=== PATIENT | female | born 1945 | race Caucasian/White ===

== ENCOUNTER 2021-04-12 09:07 | Inpatient (IN) | payer MEDICARE ==
[~2021-04-12] VITALS: Ht 170.2 cm; Wt 106.6 kg
[2021-04-12] MEDS ORDERED: ONDANSETRON 4 MG TAB.RAPDIS SL ONE (11:00)
[2021-04-12] MEDS ORDERED: ONDANSETRON 4 MG TAB.RAPDIS ONE (11:06)
[2021-04-12 11:31] LABS: BASOPHILS % (AUTO) 0.6 % (0.0-2.0); EOSINOPHILS % (AUTO) 0.3 % (0.0-6.0); HEMATOCRIT 33 % (33-45); HEMOGLOBIN 10.4 g/dL (11.5-14.8); LYMPHOCYTES # (AUTO) 0.5 K/uL (0.8-4.8); LYMPHOCYTES % (AUTO) 15.3 % (20.0-44.0); MEAN CORPUSCULAR HGB CONC 32 g/dl (31.0-36.0); MEAN CORPUSCULAR VOLUME 85 fL (82-100); MONOCYTES # (AUTO) 0.2 K/uL (0.1-1.30); MONOCYTES % (AUTO) 8.2 % (2.0-12.0); NEUTROPHILS # (AUTO) 2.3 K/uL (1.8-8.9); NEUTROPHILS % (AUTO) 75.6 % (43.0-81.0); PLATELET COUNT (AUTO) 154 K/uL (150-450); RED BLOOD CELL COUNT(AUTO) 3.83 MIL/uL (4.0-5.2)
[2021-04-12 11:48] LABS: CREATININE 0.8 mg/dL (0.6-1.3); POTASSIUM 3.8 mmol/L (3.5-5.1)
[2021-04-12] MEDS: NYSTATIN CREAM 15 GM TUBE TP SCH ×2 (12:00→17:14)
[2021-04-12] MEDS ORDERED: IOHEXOL-300 100 ML VIAL IV ONE (12:35)
[2021-04-12] MEDS ORDERED: IV NS 0.9% 500 ML BAG IV ONE ×2 (13:00→14:00)
[2021-04-12] MEDS ORDERED: CEFTRIAXONE 1GM BAG (ER ONLY) 50 ML IV ONE ×2 (13:00→13:32)
[2021-04-12] MEDS ORDERED: AZITHROMYCIN 500 MG in IV D5W 250 ML IV ONE (13:00)
[2021-04-12 13:08] LABS: MAGNESIUM 1.9 mg/dL (1.8-2.4)
[2021-04-12 13:51] LABS: C-REACTIVE PROTEIN 8.7 mg/dL (0.0-0.9)
[2021-04-12] MEDS ORDERED: CLON0.3T PO (14:09)
[2021-04-12] MEDS ORDERED: NEBI10TA2 PO (14:09)
[2021-04-12] MEDS ORDERED: VALS160T2 PO (14:09)
[2021-04-12] MEDS ORDERED: ONDANSETRON HCL/PF 4 MG/2 ML VIAL IVP PRN (14:30)
[2021-04-12] MEDS ORDERED: LABETALOL 20 MG/4 ML VIAL IV PRN (14:30)
[2021-04-12] MEDS ORDERED: ACETAMINOPHEN 325 MG TABLET PO PRN (14:30)
[2021-04-12] MEDS ORDERED: MORPHINE SULFATE INJ 2 MG/ML DISP.SYRIN IV PRN (14:30)
[2021-04-12] MEDS ORDERED: ENOXAPARIN SODIUM 40 MG/0.4 ML DISP.SYRIN SQ ONE (15:14)
[2021-04-12] MEDS: ENOXAPARIN SODIUM 40 MG/0.4 ML DISP.SYRIN SQ SCH (15:22)
[2021-04-12] MEDS ORDERED: VALSARTAN 160 MG PO SCH (17:00)
[2021-04-12] MEDS ORDERED: CLONIDINE HCL 0.1 MG TABLET ONE (17:08)
[2021-04-12] MEDS ORDERED: METOPROLOL TARTRATE 50 MG TABLET ONE (17:08)
[2021-04-12] MEDS ORDERED: PANTOPRAZOLE 40 MG VIAL ONE (17:08)
[2021-04-12] MEDS: PANTOPRAZOLE 40 MG VIAL IV SCH (17:13)
[2021-04-12] MEDS: METOPROLOL TARTRATE 50 MG TABLET PO SCH (17:14)
[2021-04-12] MEDS: CLONIDINE HCL 0.1 MG TABLET PO SCH (17:14)
[2021-04-12] MEDS ORDERED: DEXAMETHASONE SOD PHOSPHATE 4 MG/ML VIAL ONE (18:09)
[2021-04-12] MEDS: DEXAMETHASONE SOD PHOSPHATE 4 MG/ML VIAL IV SCH (18:10)
[2021-04-12 20:36] LABS: HEMOGLOBIN 9.3 g/dL (11.5-14.8)
[2021-04-12] MEDS: IV NS 0.9% 1,000 ML IV PRN (22:25)
[2021-04-13] VITALS: BP 139/89
[2021-04-13 04:00] VITALS: BP 141/88
[2021-04-13 08:00] VITALS: BP 159/95
[2021-04-13 08:15] LABS: BASOPHILS % (AUTO) 0.3 % (0.0-2.0); HEMATOCRIT 29 % (33-45); HEMOGLOBIN 9.5 g/dL (11.5-14.8); LYMPHOCYTES # (AUTO) 0.3 K/uL (0.8-4.8); LYMPHOCYTES % (AUTO) 12.1 % (20.0-44.0); MEAN CORPUSCULAR HGB CONC 33 g/dl (31.0-36.0); MEAN CORPUSCULAR VOLUME 85 fL (82-100); MONOCYTES # (AUTO) 0.2 K/uL (0.1-1.30); MONOCYTES % (AUTO) 6.6 % (2.0-12.0); NEUTROPHILS # (AUTO) 2.1 K/uL (1.8-8.9); PLATELET COUNT (AUTO) 165 K/uL (150-450); RED BLOOD CELL COUNT(AUTO) 3.45 MIL/uL (4.0-5.2); WHITE BLOOD COUNT (AUTO) 2.5 K/uL (4.3-11.0)
[2021-04-13] MEDS: DEXAMETHASONE SOD PHOSPHATE 4 MG/ML VIAL IV SCH (08:35)
[2021-04-13] MEDS: CLONIDINE HCL 0.1 MG TABLET PO SCH ×2 (08:36→18:29)
[2021-04-13] MEDS: VALSARTAN 80 MG TABLET PO SCH (08:36)
[2021-04-13] MEDS: METOPROLOL TARTRATE 50 MG TABLET PO SCH ×2 (08:37→18:29)
[2021-04-13] MEDS: PANTOPRAZOLE 40 MG VIAL IV SCH (08:37)
[2021-04-13 09:05] LABS: ALBUMIN 2.5 g/dL (3.4-5.0); BILIRUBIN,TOTAL 0.2 mg/dL (0.2-1.0); CALCIUM, SERUM 8.8 mg/dL (8.5-10.1); CREATININE 0.9 mg/dL (0.6-1.3); PHOSPHORUS 3.6 mg/dL (2.5-4.9); POTASSIUM 4.1 mmol/L (3.5-5.1); TOTAL PROTEIN, SERUM 6.8 g/dL (6.4-8.2)
[2021-04-13] MEDS: NYSTATIN CREAM 15 GM TUBE TP SCH ×2 (10:00→18:30)
[2021-04-13 12:00] VITALS: BP 141/85
[2021-04-13 12:42] LABS: HEMOGLOBIN 9.2 g/dL (11.5-14.8)
[2021-04-13] MEDS: ENOXAPARIN SODIUM 40 MG/0.4 ML DISP.SYRIN SQ SCH (15:06)
[2021-04-13 16:00] VITALS: BP 155/80
[2021-04-13] MEDS: IV NS 0.9% 1,000 ML IV PRN (16:48)
[2021-04-13 20:00] VITALS: BP 141/83
[2021-04-13 20:16] LABS: HEMOGLOBIN 8.7 g/dL (11.5-14.8)
[2021-04-14] VITALS: BP 149/97
[2021-04-14 04:00] VITALS: BP 146/88
[2021-04-14 08:00] VITALS: BP 157/87
[2021-04-14] MEDS: CLONIDINE HCL 0.1 MG TABLET PO SCH ×2 (08:56→16:18)
[2021-04-14] MEDS: DEXAMETHASONE SOD PHOSPHATE 4 MG/ML VIAL IV SCH (08:57)
[2021-04-14] MEDS: VALSARTAN 80 MG TABLET PO SCH (08:57)
[2021-04-14] MEDS: METOPROLOL TARTRATE 50 MG TABLET PO SCH ×2 (08:57→16:18)
[2021-04-14] MEDS: ENOXAPARIN SODIUM 40 MG/0.4 ML DISP.SYRIN SQ SCH (08:58)
[2021-04-14] MEDS: NYSTATIN CREAM 15 GM TUBE TP SCH ×2 (09:00→16:19)
[2021-04-14] MEDS: IV NS 0.9% 1,000 ML IV PRN (09:25)
[2021-04-14] MEDS ORDERED: DEXA4TAB PO (10:39)
[2021-04-14] MEDS ORDERED: FLUT1BLS IH (10:39)
[2021-04-14] MEDS ORDERED: ALBU18HF2 INH (10:39)
[2021-04-14] MEDS ORDERED: GUAI5SYR GT (10:42)
[2021-04-14 12:00] VITALS: BP 154/88
[2021-04-14] MEDS ORDERED: REMDESIVIR (CHARGED) 200 MG, *LOADING DOSE 1 EA in IV NS 0.9% 210 ML IV ONE (15:00)
[2021-04-14] MEDS ORDERED: ENOXAPARIN SODIUM 40 MG/0.4 ML DISP.SYRIN SQ SCH (15:00)
[2021-04-14 16:00] VITALS: BP 147/87
[2021-04-14] MEDS: CLOTRIMAZOLE 1% 15 GM TUBE TP SCH (16:18)
[2021-04-14 20:00] VITALS: BP 148/95
[2021-04-15] VITALS: BP 171/112
[2021-04-15 04:00] VITALS: BP 170/87
[2021-04-15] MEDS: ENOXAPARIN SODIUM 40 MG/0.4 ML DISP.SYRIN SQ SCH ×2 (08:55→17:00)
[2021-04-15] MEDS: METOPROLOL TARTRATE 50 MG TABLET PO SCH ×2 (08:55→17:00)
[2021-04-15] MEDS: DEXAMETHASONE SOD PHOSPHATE 4 MG/ML VIAL IV SCH (08:55)
[2021-04-15] MEDS: CLONIDINE HCL 0.1 MG TABLET PO SCH ×2 (08:55→17:00)
[2021-04-15] MEDS: VALSARTAN 80 MG TABLET PO SCH (08:55)
[2021-04-15] MEDS: NYSTATIN CREAM 15 GM TUBE TP SCH ×2 (08:57→17:00)
[2021-04-15] MEDS: CLOTRIMAZOLE 1% 15 GM TUBE TP SCH ×2 (08:57→17:00)
[2021-04-15] MEDS ORDERED: REMDESIVIR (CHARGED) 100 MG in IV NS 0.9% 100 ML IV SCH (15:00)
[2021-04-16] MEDS: DEXAMETHASONE SOD PHOSPHATE 4 MG/ML VIAL IV SCH (09:00)
[2021-04-16] MEDS: METOPROLOL TARTRATE 50 MG TABLET PO SCH ×2 (09:00→16:15)
[2021-04-16] MEDS: CLOTRIMAZOLE 1% 15 GM TUBE TP SCH ×2 (09:00→16:16)
[2021-04-16] MEDS: ENOXAPARIN SODIUM 40 MG/0.4 ML DISP.SYRIN SQ SCH ×2 (09:00→16:15)
[2021-04-16] MEDS: CLONIDINE HCL 0.1 MG TABLET PO SCH ×2 (09:00→16:15)
[2021-04-16] MEDS: VALSARTAN 80 MG TABLET PO SCH (09:00)
[2021-04-16] MEDS: NYSTATIN CREAM 15 GM TUBE TP SCH ×2 (09:00→16:16)
[2021-04-17] MEDS: CLONIDINE HCL 0.1 MG TABLET PO SCH ×2 (08:57→16:04)
[2021-04-17] MEDS: DEXAMETHASONE SOD PHOSPHATE 10 MG/ML VIAL IV SCH (08:57)
[2021-04-17] MEDS: VALSARTAN 80 MG TABLET PO SCH (08:58)
[2021-04-17] MEDS: ENOXAPARIN SODIUM 40 MG/0.4 ML DISP.SYRIN SQ SCH ×2 (08:58→16:04)
[2021-04-17] MEDS: CLOTRIMAZOLE 1% 15 GM TUBE TP SCH ×2 (08:58→14:29)
[2021-04-17] MEDS: METOPROLOL TARTRATE 50 MG TABLET PO SCH ×2 (08:58→16:04)
[2021-04-17] MEDS: NYSTATIN CREAM 15 GM TUBE TP SCH ×2 (08:58→16:04)
[2021-04-18] MEDS: VALSARTAN 80 MG TABLET PO SCH (08:29)
[2021-04-18] MEDS: METOPROLOL TARTRATE 50 MG TABLET PO SCH ×2 (08:29→17:00)
[2021-04-18] MEDS: ENOXAPARIN SODIUM 40 MG/0.4 ML DISP.SYRIN SQ SCH ×2 (08:30→17:00)
[2021-04-18] MEDS: CLONIDINE HCL 0.1 MG TABLET PO SCH ×2 (08:30→17:27)
[2021-04-18] MEDS: DEXAMETHASONE SOD PHOSPHATE 10 MG/ML VIAL IV SCH (08:31)
[2021-04-18] MEDS: CLOTRIMAZOLE 1% 15 GM TUBE TP SCH ×2 (09:24→17:00)
[2021-04-18] MEDS: NYSTATIN CREAM 15 GM TUBE TP SCH ×2 (09:25→17:00)
[2021-04-18 20:00] VITALS: BP 137/78
[2021-04-19 04:00] VITALS: BP 145/82
[2021-04-19] MEDS: DEXAMETHASONE SOD PHOSPHATE 10 MG/ML VIAL IV SCH (09:00)
[2021-04-19] MEDS: VALSARTAN 80 MG TABLET PO SCH (09:00)
[2021-04-19] MEDS: METOPROLOL TARTRATE 50 MG TABLET PO SCH ×2 (09:00→17:00)
[2021-04-19] MEDS: ENOXAPARIN SODIUM 40 MG/0.4 ML DISP.SYRIN SQ SCH ×2 (09:00→17:00)
[2021-04-19] MEDS: CLONIDINE HCL 0.1 MG TABLET PO SCH ×2 (09:00→17:00)
[2021-04-19] MEDS: NYSTATIN CREAM 15 GM TUBE TP SCH ×2 (09:28→16:59)
[2021-04-19] MEDS: CLOTRIMAZOLE 1% 15 GM TUBE TP SCH ×2 (09:28→16:59)
[2021-04-19 12:00] VITALS: BP 105/70
[2021-04-19 20:00] VITALS: BP 143/97
[2021-04-20 08:11] VITALS: BP 163/99
[2021-04-20] MEDS: METOPROLOL TARTRATE 50 MG TABLET PO SCH ×3 (09:00→17:00)
[2021-04-20] MEDS: DEXAMETHASONE SOD PHOSPHATE 10 MG/ML VIAL IV SCH (09:00)
[2021-04-20] MEDS: VALSARTAN 80 MG TABLET PO SCH ×2 (09:00→09:28)
[2021-04-20] MEDS: ENOXAPARIN SODIUM 40 MG/0.4 ML DISP.SYRIN SQ SCH ×2 (09:00→17:00)
[2021-04-20] MEDS: CLONIDINE HCL 0.1 MG TABLET PO SCH ×2 (09:29→17:00)
[2021-04-20] MEDS: CLOTRIMAZOLE 1% 15 GM TUBE TP SCH ×2 (09:30→17:49)
[2021-04-20] MEDS: NYSTATIN CREAM 15 GM TUBE TP SCH ×2 (09:30→17:50)
[2021-04-20 18:29] VITALS: BP 163/99
[2021-04-21] MEDS: METOPROLOL TARTRATE 50 MG TABLET PO SCH ×2 (09:00→16:09)
[2021-04-21] MEDS: NYSTATIN CREAM 15 GM TUBE TP SCH ×2 (09:00→16:21)
[2021-04-21] MEDS: VALSARTAN 80 MG TABLET PO SCH (09:00)
[2021-04-21] MEDS: CLOTRIMAZOLE 1% 15 GM TUBE TP SCH ×2 (09:00→16:21)
[2021-04-21] MEDS: DEXAMETHASONE SOD PHOSPHATE 10 MG/ML VIAL IV SCH (09:00)
[2021-04-21] MEDS: ENOXAPARIN SODIUM 40 MG/0.4 ML DISP.SYRIN SQ SCH (09:00)
[2021-04-21] MEDS: CLONIDINE HCL 0.1 MG TABLET PO SCH ×2 (09:00→16:09)
[2021-04-21 12:00] VITALS: BP 157/89
[2021-04-21 16:00] VITALS: BP 170/100
[2021-04-21 20:00] VITALS: BP 133/85
[2021-04-22] MEDS: METOPROLOL TARTRATE 50 MG TABLET PO SCH (09:00)
[2021-04-22] MEDS: CLOTRIMAZOLE 1% 15 GM TUBE TP SCH (09:00)
[2021-04-22] MEDS: VALSARTAN 80 MG TABLET PO SCH (09:00)
[2021-04-22] MEDS: NYSTATIN CREAM 15 GM TUBE TP SCH (09:00)
[2021-04-22] MEDS: CLONIDINE HCL 0.1 MG TABLET PO SCH (09:00)
[2021-04-22 12:04] VITALS: BP 133/80
== END 2021-04-22 14:32 | DRG 177 ==
LOC: ER 09:12 → TRANSITION 15:06 → TELE1 18:54 → MEDSG1 04-15 12:04
PROVIDERS: ADMIT Internal Medicine; ATTEND Internal Medicine
PROC: XW033E5 Introduction of Remdesivir Anti-infective into Peripheral Vein, Percutaneous Approach, New Technology Group 5 (ICD-10-PCS; principal; 2021-04-14)
DX: U07.1 COVID-19 (principal); J12.82 Pneumonia due to coronavirus disease 2019; E87.1 Hypo-osmolality and hyponatremia; D64.9 Anemia, unspecified; Z59.00 Homelessness unspecified; Z79.899 Other long term (current) drug therapy; Z79.51 Long term (current) use of inhaled steroids; I11.0 Hypertensive heart disease with heart failure; I50.9 Heart failure, unspecified; R23.4 Changes in skin texture; R09.02 Hypoxemia; F41.9 Anxiety disorder, unspecified; E66.01 Morbid (severe) obesity due to excess calories; Z68.36 Body mass index [BMI] 36.0-36.9, adult
CPT/HCPCS: 36415; 71045-TC; 80048-TC; 80053-TC; 82550-TC; 83605-TC; 83615-TC; 83735-TC; 83880; 84100-TC; 84484-TC; 85025-TC; 85027-TC; 85378-TC; 86140-TC; 87040-TC; 87081-TC; 97116-TC; 97530-TC; C9113; C9803; G0378; J0456; J0696; J1100; J1650; J3490; J7030; J7060; Q0162; Q9967